=== PATIENT | female | born 1980 | race Caucasian/White ===

== ENCOUNTER 2022-10-13 16:18 | Emergency (ER) | payer OTHER, SELFPAY ==
--- NOTE | ~2022-10-13 | US_ITS ---
EXAMINATION: US PELVIS COMPLETE US PELVIS ENDOVAGINAL WITH LIMITED DOPPLER CLINICAL INFORMATION: Right lower quadrant pain COMPARISON: CT 10/13/2022 TECHNIQUE: Transabdominal and transvaginal images of the pelvis were obtained. Endovaginal imaging was performed for improved visualization of the ovaries and endometrial stripe. Color and spectral Doppler evaluation of the ovaries was attempted. FINDINGS: UTERUS: Anteverted, anteflexed. Normal size and contour, measuring 10.1 x 4.8 x 6.3 cm (cervix to fundus x AP x transverse). Uniform, homogeneous endometrium measures 1.3 cm in width. Incidentally noted nabothian cysts in the cervix. RIGHT OVARY: Right ovary not definitely seen. No adnexal mass. Normal color flow in the region of the right adnexa but as the right ovary could not be seen, definitive spectral Doppler evaluation could not be performed. LEFT OVARY: Left ovary not definitely seen. No adnexal mass. Normal color flow in the region of the left adnexa but as the left ovary could not be seen, definitive spectral Doppler evaluation could not be performed. FREE FLUID: Small volume of likely physiologic pelvic free fluid. US/US pelvic and transvaginal IMPRESSION: Normal appearance of the uterus. Ovaries not well seen but there is no adnexal mass.
--- NOTE | ~2022-10-13 | US_ITS ---
EXAMINATION: US PELVIS COMPLETE US PELVIS ENDOVAGINAL WITH LIMITED DOPPLER CLINICAL INFORMATION: Right lower quadrant pain COMPARISON: CT 10/13/2022 TECHNIQUE: Transabdominal and transvaginal images of the pelvis were obtained. Endovaginal imaging was performed for improved visualization of the ovaries and endometrial stripe. Color and spectral Doppler evaluation of the ovaries was attempted. FINDINGS: UTERUS: Anteverted, anteflexed. Normal size and contour, measuring 10.1 x 4.8 x 6.3 cm (cervix to fundus x AP x transverse). Uniform, homogeneous endometrium measures 1.3 cm in width. Incidentally noted nabothian cysts in the cervix. RIGHT OVARY: Right ovary not definitely seen. No adnexal mass. Normal color flow in the region of the right adnexa but as the right ovary could not be seen, definitive spectral Doppler evaluation could not be performed. LEFT OVARY: Left ovary not definitely seen. No adnexal mass. Normal color flow in the region of the left adnexa but as the left ovary could not be seen, definitive spectral Doppler evaluation could not be performed. FREE FLUID: Small volume of likely physiologic pelvic free fluid. US/US pelvic ovarian doppler IMPRESSION: Normal appearance of the uterus. Ovaries not well seen but there is no adnexal mass.
--- NOTE | ~2022-10-13 | CT_ITS ---
EXAMINATION: CT ABDOMEN AND PELVIS WITH CONTRAST CLINICAL INFORMATION: Right upper and right lower quadrant pain COMPARISON: None TECHNIQUE: Multidetector volumetric images were obtained from the superior aspect of the liver through the pubic symphysis following administration 90 mL of Omnipaque 350 intravenous contrast. Sagittal and coronal reformatted images were obtained on the technologist's workstation. Oral contrast: No This CT examination was performed using dose optimization techniques as appropriate, variously including the following: *Automated exposure control *Adjustment of mA and/or kV according to patient size (this includes techniques or standardized protocols for targeted exams where dose is matched to indication/reason for exam; i.e. extremities or head) *Use of iterative reconstruction technique DLP: 1581 mGy-cm FINDINGS: LUNG BASES: The visualized lung bases are unremarkable. LIVER, GALLBLADDER, AND BILIARY TREE: Diffuse hepatic hypoattenuation consistent with steatosis. No liver lesion or biliary ductal dilation. Status post cholecystectomy. PANCREAS: Unremarkable. SPLEEN: Unremarkable. ADRENAL GLANDS: Unremarkable. KIDNEYS AND URETERS: Symmetric nephrograms. No renal calculi or hydronephrosis. Small 0.7 cm exophytic low-density benign-appearing cyst in the anterior right midpole. No imaging follow-up recommended. No other renal lesions. No perinephric stranding or fluid collection. BLADDER: Decompressed limiting assessment, but grossly unremarkable. GASTROINTESTINAL TRACT: No dilated bowel loops. No bowel wall thickening. Normal appendix. No free air or ascites. ABDOMINAL WALL: Small fat-containing umbilical hernia. LYMPH NODES: No lymphadenopathy. VASCULAR: Unremarkable. PELVIC VISCERA: Gynecologic structures are unremarkable. Small amount of free pelvic fluid. OSSEOUS STRUCTURES: No acute fracture or suspicious osseous lesion. Mild multilevel spondylosis of the lower thoracic and lumbar spine. CT/CT abdomen pelvis w IV con IMPRESSION: 1. No evidence of acute appendicitis or other acute intra-abdominal process. 2. Hepatic steatosis. 3. Status post cholecystectomy.
[2022-10-13 16:29] VITALS: BP 158/76; PULSE 96; RESP 16; TEMP 36.2; O2SAT 99; BMI 43.9
--- NOTE | 2022-10-13 16:33 | ED_ITS ---
HPI - General Adult General Chief complaint: Abdominal Pain <DOC Esquivel Last Filed: 10/14/22 11:19> Stated complaint: sent from urgent care/ abdominal pain <DOC Esquivel Last Filed: 10/14/22 11:19> Time Seen by Provider: 10/13/22 17:50 <DOC Esquivel Last Filed: 10/14/22 11:19> Source: patient <DOC Galloway Last Filed: 10/14/22 01:08> Mode of arrival: ambulatory <DOC Galloway Last Filed: 10/14/22 01:08> Limitations: no limitations <DOC Galloway Last Filed: 10/14/22 01:08> History of Present Illness HPI narrative: This is a 42-year-old female no significant medical history presenting to the emergency department with sudden onset, right lower quadrant and right upper quadrant abdominal pain since this morning. Patient reports that the pain is intermittent, severe in nature, at time feels it in her flank patient tells me that she went to urgent care where she was advised to come in for further evalu ation and treatment. Also reports intermittent nausea and vomiting as well as fatigue, malaise and anorexia. Patient still has her appendix however doesnt have a gallbladder. Patient tells me she was feeling fine yesterday. Denies fevers, chills, chest pain, headache, vision changes, dizziness, weakness. <DOC Galloway Last Filed: 10/14/22 01:08> Related Data Home medications: Previous Rx's Medication Instructions Recorded aluminum-mag hydroxide-simethicone 5 ml PO 5XD PRN dyspepsia #355 mL 10/14/22 200 mg-200 mg-20 mg/5 mL oral susp (Maalox Advanced) ondansetron 4 mg disintegrating 4 mg PO Q6H PRN nausea and 10/14/22 tablet vomiting #14 tabs <DOC Esquivel Last Filed: 10/14/22 11:19> Allergies/adverse reactions: Allergies Allergy/AdvReac Type Severity Reaction Status Date / Time No Known Allergies Allergy Verified 10/13/22 16:29 <DOC Esquivel Last Filed: 10/14/22 11:19> Review of Systems Review of Systems: Constitutional : No Weight loss, No Fever, No Chills, No Fatigue, No Malaise ENT/Mouth : No sore throat, No Rhinorrhea Eyes: No Eye Pain, No Swelling, No Redness Cardiovascular : No Chest Pain, No SOB, No Dyspnea on Exertion, No Orthopnea, No Edema, No Palpitations Respiratory : No Cough, No Sputum, No Wheezing Gastrointestinal : + Nausea, + Vomiting, No Diarrhea, No Constipation, + abdomin al Pain, No Hematochezia, No Melena Genitourinary : No Dysuria, No Urinary Frequency, No Hematuria, Musculoskeletal : No joint pain, No Myalgias, No Joint Swelling Skin : No Skin Lesions, No rash Neuro : No Weakness, No Numbness, No Dizziness, No Headache Psych : No Anxiety/Panic, No Depression All other systems reviewed and are negative <DOC Galloway - Last F iled: 10/14/22 01:08> Yes all other systems are reviewed and are negative <DOC Galloway - Last Filed: 10/14/22 01:08> [facility] Past Medical History Attestation statement: The following information was validated with the patient. <DOC Key - Last Filed: 10/14/22 01:08> Source: old records reviewed and nursing notes reviewed <DOC Galloway - Last Filed: 10/14/22 01:08> Social History Social History: Social History Smoked in Last 30 Days: No Advance Directives: No Advance Directives Information Provided: Yes Patient : No <DOC Esquivel - Last Filed: 10/14/22 11:19> Physical Exam ED Vital Signs: Vital Signs - 24 hr 10/13/22 16:29 10/13/22 19:45 10/13/22 19:48 Temperature 97.1 F 98.4 F Pulse Rate 96 91 Respiratory Rate 16 18 18 Blood Pressure 158/76 H 108/68 Pulse Oximetry 99 97 Oxygen Delivery Method Room Air Room Air 10/13/22 21:58 10/13/22 22:24 10/14/22 01:52 Temperature 98.4 F Pulse Rate 63 67 82 Respiratory Rate 16 16 19 Blood Pressure 106/63 102/54 L 112/68 Pulse Oximetry 96 96 97 Oxygen Delivery Method Room Air Room Air Room Air BMI result Body Mass Index 43.9 <DOC Esquivel - Last Filed: 10/14/22 11:19> Vital Signs - 24 hr 10/13/22 16:29 10/13/22 19:45 10/13/22 19:48 Temperature 97.1 F 98.4 F Pulse Rate 96 91 Respiratory Rate 16 18 18 Blood Pressure 158/76 H 108/68 Pulse Oximetry 99 97 Oxygen Delivery Method Room Air Room Air 10/13/22 21:58 10/13/22 22:24 10/14/22 01:52 Temperature 98.4 F Pulse Rate 63 67 82 Respiratory Rate 16 16 19 Blood Pressure 106/63 102/54 L 112/68 Pulse Oximetry 96 96 97 Oxygen Delivery Method Room Air Room Air Room Air BMI result Body Mass Index 43.9 vss <DOC Galloway - Last Filed: 10/14/22 01:08> Appearance: Alert.? Oriented X3.? No acute distress.? Head: Normocephalic, atraumatic, no step-offs or deformities Eyes: Pupils equal, round and reactive to light.? ENT: Pharynx normal.? Neck: Normal inspection.? Neck supple.? CVS: Normal heart rate and rhythm.? Pulses normal.? Respiratory: No respiratory distress.? Breath sounds normal.? Abdomen: Soft and tenderness to right lower quadrant and RUQ pain on palpation RUQ >RLQ Normoactive bowel sounds..? Skin: Skin warm and dry.? Normal skin color.? Normal skin turgor.? Extremities: No lower extremity edema.? No calf ttp. 5/5 strength to bilateral upper and lower extremities Back: No midline tenderness, no C-spine tenderness, full range of motion, no CVA tenderness bilaterally Neuro: Oriented X 3.? No motor deficit.? No sensory deficit. CN 2-12 intact <DOC Galloway - Last Filed: 10/14/22 01:08> Course Course Course Narrative: RME: 42 yold female presents to the ED for RUQ and RLQ pain for the past two days with vomitting. Labs and UA ordered. <DOC Esquivel - Last Filed: 10/14/22 11:19> Reevaluation(s) Reevaluation #1: CBC within normal limits. Chemistry with no acute findings requiring intervention. Lipase within normal limits. Beta hCG negative. Coags normal. Patient's UA without infection. Urine negative. COVID, influenza negative. CT of the abdomen and pelvis with no evidence of acute appendicitis or other acute intra-abdominal processes. Hepatic steatosis noted. Status post cholecystectomy. Pelvic and transvaginal ultrasound normal appearance of the uterus, eat ovaries not well seen but there is no adnexal mass, unable to visualize flow however patient's pain is mostly to the upper abdomen, I do not suspect ovarian torsion. Patient continued to complain of pain therefore an additional dose of morphine was given. Patient reports symptomatic improvement. Will give her GI cocktail and do a p.o. challenge. <DOC Galloway - Last Filed: 10/14/22 01:08> Time: 00:40 <DOC Galloway - Last Filed: 10/14/22 01:08> Reevaluation #2: Patient feeling better. [facility] Educated patient on diagnosis and treatment plan, answered all question, patient verbalizes understanding. At this time patient will be discharged home, advised to return with new or worsening symptoms. Educated on worrisome signs and symptoms and when to return. At this time I feel comfortable discharge home. Will have her follow up with GI <DOC Galloway - Last Filed: 10/14/22 01:08> Time: 01:07 <DOC Galloway - Last Filed: 10/14/22 01:08> Medications Administered Discontinued Medications Generic Name Dose Route Start Last Admin Trade Name Freq PRN Reason Stop Dose Admin Al Hydroxide/Mg Hydroxide 30 ml 10/14/22 00:40 10/14/22 01:11 Magnesium Hydrox/Alum Hydrox 30 Ml Oral.Susp PO 10/14/22 00:41 30 ml ONCE ONE Administration Belladonna Alkaloids/Phenobarbital 10 ml 10/14/22 00:40 10/14/22 01:12 Phenobarb/Hyoscy/Atropine/Scop 10 Ml Elixir PO 10/14/22 00:41 10 ml ONCE ONE Administration Iohexol 100 ml 10/13/22 18:44 10/13/22 18:44 Iohexol 350 Mg/Ml 100 Ml Infus..Btl IV 10/13/22 18:45 90 ml ONCE ONE Administration Morphine Sulfate 4 mg 10/13/22 19:16 10/13/22 19:48 Morphine Sulfate 4 Mg/Ml Cartridge IVPUSH 10/13/22 19:17 4 mg ONCE ONE Administration Protocol Morphine Sulfate 4 mg 10/13/22 21:48 10/13/22 21:51 Morphine Sulfate 4 Mg/Ml Cartridge IVPUSH 10/13/22 21:49 4 mg ONCE ONE Administration Protocol Ondansetron HCl 4 mg 10/13/22 19:29 10/13/22 19:48 Ondansetron Hcl 4 Mg/2 Ml Vial IVPUSH 10/13/22 19:30 4 mg ONCE ONE Administration <DOC Esquivel - Last Filed: 10/14/22 11:19> Medications Administered Discontinued Medications Generic Name Dose Route Start Last Admin Trade Name Freq PRN Reason Stop Dose Admin Al Hydroxide/Mg Hydroxide 30 ml 10/14/22 00:40 10/14/22 01:11 Magnesium Hydrox/Alum Hydrox 30 Ml Oral.Susp PO 10/14/22 00:41 30 ml ONCE ONE Administration Belladonna Alkaloids/Phenobarbital 10 ml 10/14/22 00:40 10/14/22 01:12 Phenobarb/Hyoscy/Atropine/Scop 10 Ml Elixir PO 10/14/22 00:41 10 ml ONCE ONE Administration Iohexol 100 ml 10/13/22 18:44 10/13/22 18:44 Iohexol 350 Mg/Ml 100 Ml Infus..Btl IV 10/13/22 18:45 90 ml ONCE ONE Administration Morphine Sulfate 4 mg 10/13/22 19:16 10/13/22 19:48 Morphine Sulfate 4 Mg/Ml Cartridge IVPUSH 10/13/22 19:17 4 mg ONCE ONE Administration Protocol Morphine Sulfate 4 mg 10/13/22 21:48 10/13/22 21:51 Morphine Sulfate 4 Mg/Ml Cartridge IVPUSH 10/13/22 21:49 4 mg ONCE ONE Administration Protocol Ondansetron HCl 4 mg 10/13/22 19:29 10/13/22 19:48 Ondansetron Hcl 4 Mg/2 Ml Vial IVPUSH 10/13/22 19:30 4 mg ONCE ONE Administration <DOC Galloway - Last Filed: 10/14/22 01:08> Medical Decision Making Medical Decision Making [facility] Narrative: 1752 42-year-old female presents with sudden-onset right lower quadrant pain/ right upper quadrant pain, severe intermittent nature associated with nausea, vomiting. Coming from urgent care. Physical exam with tenderness to right lower quadrant and RUQ pain on palpation RUQ >RLQ Concerns for possible appendicitis versus kidney stone versus UTI and cystitis. Unlikely acute abdomen, cholecystitis, pancreatitis, diverticulitis. Plan labs, imaging, urine, , influenza and COVID. <DOC Galloway - Last Filed: 10/14/22 01:08> Differential Diagnosis Differential Diagnoses: The differential diagnosis associated with the presentation includes <DOC Galloway - Last Filed: 10/14/22 01:08> Concerns for possible appendicitis versus kidney stone versus UTI and cystitis. Unlikely acute abdomen, cholecystitis, pancreatitis, diverticulitis. <DOC Galloway - Last Filed: 10/14/22 01:08> Lab Data [facility] Lab Attestation statement: I reviewed the patient's lab results. <DOC Galloway - Last Filed: 10/14/22 01:08> Result Diagrams: 10/13/22 16:47 10/13/22 16:47 <DOC Esquivel - Last Filed: 10/14/22 11:19> Labs: Lab Results 10/13/22 10/13/22 10/13/22 Range/Units 16:47 16:47 16:47 WBC 10.0 (4.8-10.8) X10*3/uL RBC 4.76 (4.20-5.50) X10*6/uL Hgb 13.2 (12.0-16.0) g/dl Hct 40.4 (37.0-47.0) % MCV 84.9 (80.0-98.0) fL MCH 27.7 (27.0-33.0) pg MCHC 32.7 (31.0-35.0) g/dl RDW 13.3 (11.0-16.0) % Plt Count 313 (160-400) X10*3/uL MPV 9.4 (9.4-12.3) fL Immature Gran % (Auto) 0.4 (0.0-0.4) % Neut % (Auto) 88.5 H (45-73) % Lymph % (Auto) 6.3 L (20-40) % Mineral % (Auto) 4.4 (2-11) % Eos % (Auto) 0.2 (0-4) % Baso % (Auto) 0.2 (0-2) % Lymph # (Auto) 0.6 L (1.2-4.9) X10*3/uL Mineral # (Auto) 0.4 (0.1-1.2) X10*3/uL Eos # (Auto) 0.0 (0.0-0.4) X10*3/uL Baso # (Auto) 0.0 (0.0-0.2) X10*3/uL Abs Immat Gran (auto) 0.04 H (0.00-0.03) X10*3/uL Absolute Neuts (auto) 8.9 H (2.0-8.3) x10*3/uL Absolute Nucleated RBC 0.000 (0.0-0.012) X10*3/uL Nucleated RBC % (auto) 0.0 (0.0-0.2) /100WBC PT 12.3 (10.0-13.1) SEC INR 1.1 (0.9-1.1) APTT 30.0 (26.0-36.4) SEC Sodium 138 (135-145) mmol/L Potassium 3.7 (3.3-5.1) mmol/L Chloride 107 (96-108) mmol/L Carbon Dioxide 20 L (22-29) mmol/L Anion Gap 15 (12-20) BUN 15 (9-16) mg/dL Creatinine 0.66 (0.5-1.4) mg/dL Estim Creat Clear Calc 162.4 Estimated GFR > 60 Random Glucose 102 (60-115) mg/dL Calcium 8.9 (8.4-10.2) mg/dL Total Bilirubin 0.8 (0.0-1.0) mg/dL AST 20 (5-31) U/L ALT 16 (0-31) U/L Alkaline Phosphatase 70 (39-117) U/L Total Protein 7.3 (6.5-8.0) g/dL Albumin 4.0 (3.5-5.0) g/dL Lipase 14 (8-78) U/L Beta HCG, Quant < 2 mIU/mL Urine Color Urine Appearance Urine pH (5.0-9.0) Ur Specific [place] (1.005-1.025) Urine Protein (Neg-Trace) mg/dL Urine Glucose (UA) (Negative) mg/dL Urine Ketones (Negative) mg/dL Urine Blood (Negative) Urine Nitrite (Negative) Ur Leukocyte Esterase (Negative) Urine Test (NEGATIVE) COVID-19 ([facility]IA [facility]) (Negative) COVID-19 Clin Com Influenza Type A ([place]) (Negative) Influenza Type B ([place]) (Negative) Influenza A & B Note 10/13/22 10/13/22 10/13/22 Range/Units 18:06 18:06 18:06 WBC (4.8-10.8) X10*3/uL RBC (4.20-5.50) X10*6/uL Hgb (12.0-16.0) g/dl Hct (37.0-47.0) % MCV (80.0-98.0) fL MCH (27.0-33.0) pg MCHC (31.0-35.0) g/dl RDW (11.0-16.0) % Plt Count (160-400) X10*3/uL MPV (9.4-12.3) fL Immature Gran % (Auto) (0.0-0.4) % Neut % (Auto) (45-73) % Lymph % (Auto) (20-40) % Mineral % (Auto) (2-11) % Eos % (Auto) (0-4) % Baso % (Auto) (0-2) % Lymph # (Auto) (1.2-4.9) X10*3/uL Mineral # (Auto) (0.1-1.2) X10*3/uL Eos # (Auto) (0.0-0.4) X10*3/uL Baso # (Auto) (0.0-0.2) X10*3/uL Abs Immat Gran (auto) (0.00-0.03) X10*3/uL Absolute Neuts (auto) (2.0-8.3) x10*3/uL Absolute Nucleated RBC (0.0-0.012) X10*3/uL Nucleated RBC % (auto) (0.0-0.2) /100WBC PT (10.0-13.1) SEC INR (0.9-1.1) APTT (26.0-36.4) SEC Sodium (135-145) mmol/L Potassium (3.3-5.1) mmol/L Chloride (96-108) mmol/L Carbon Dioxide (22-29) mmol/L Anion Gap (12-20) BUN (9-16) mg/dL Creatinine (0.5-1.4) mg/dL Estim Creat Clear Calc Estimated GFR Random Glucose (60-115) mg/dL Calcium (8.4-10.2) mg/dL Total Bilirubin (0.0-1.0) mg/dL AST (5-31) U/L ALT (0-31) U/L Alkaline Phosphatase (39-117) U/L Total Protein (6.5-8.0) g/dL Albumin (3.5-5.0) g/dL Lipase (8-78) U/L Beta HCG, Quant mIU/mL Urine Color Yellow Urine Appearance Clear Urine pH 5.5 (5.0-9.0) Ur Specific [place] 1.025 (1.005-1.025) Urine Protein Trace (Neg-Trace) mg/dL Urine Glucose (UA) Negative (Negative) mg/dL Urine Ketones 40 (Negative) mg/dL Urine Blood Negative (Negative) Urine Nitrite Negative (Negative) Ur Leukocyte Esterase Negative (Negative) Urine Test (NEGATIVE) COVID-19 ([place]) Negative (Negative) COVID-19 Clin Com See Note Influenza Type A ([place]) Negative (Negative) Influenza Type B ([place]) Negative (Negative) Influenza A & B Note See Note 10/13/22 Range/Units 18:06 WBC (4.8-10.8) X10*3/uL RBC (4.20-5.50) X10*6/uL Hgb (12.0-16.0) g/dl Hct (37.0-47.0) % MCV (80.0-98.0) fL MCH (27.0-33.0) pg MCHC (31.0-35.0) g/dl RDW (11.0-16.0) % Plt Count (160-400) X10*3/uL MPV (9.4-12.3) fL Immature Gran % (Auto) (0.0-0.4) % Neut % (Auto) (45-73) % Lymph % (Auto) (20-40) % [place] % (Auto) (2-11) % Eos % (Auto) (0-4) % Baso % (Auto) (0-2) % Lymph # (Auto) (1.2-4.9) X10*3/uL Min[place] # (Auto) (0.1-1.2) X10*3/uL Eos # (Auto) (0.0-0.4) X10*3/uL Baso # (Auto) (0.0-0.2) X10*3/uL Abs Immat Gran (auto) (0.00-0.03) X10*3/uL Absolute Neuts (auto) (2.0-8.3) x10*3/uL Absolute Nucleated RBC (0.0-0.012) X10*3/uL Nucleated RBC % (auto) (0.0-0.2) /100WBC PT (10.0-13.1) SEC INR (0.9-1.1) APTT (26.0-36.4) SEC Sodium (135-145) mmol/L Potassium (3.3-5.1) mmol/L Chloride (96-108) mmol/L Carbon Dioxide (22-29) mmol/L Anion Gap (12-20) BUN (9-16) mg/dL Creatinine (0.5-1.4) mg/dL Estim Creat Clear Calc Estimated GFR Random Glucose (60-115) mg/dL Calcium (8.4-10.2) mg/dL Total Bilirubin (0.0-1.0) mg/dL AST (5-31) U/L ALT (0-31) U/L Alkaline Phosphatase (39-117) U/L Total Protein (6.5-8.0) g/dL Albumin (3.5-5.0) g/dL Lipase (8-78) U/L Beta HCG, Quant mIU/mL Urine Color Urine Appearance Urine pH (5.0-9.0) Ur Specific [place] (1.005-1.025) Urine Protein (Neg-Trace) mg/dL Urine Glucose (UA) (Negative) mg/dL Urine Ketones (Negative) mg/dL Urine Blood (Negative) Urine Nitrite (Negative) Ur Leukocyte Esterase (Negative) Urine Test NEGATIVE (NEGATIVE) COVID-19 ([place] [place]) (Negative) COVID-19 Clin Com Influenza Type A ([place]) (Negative) Influenza Type B ([place]) (Negative) Influenza A & B Note <DOC Esquivel - Last Filed: 10/14/22 11:19> Lab Results 10/13/22 10/13/22 10/13/22 Range/Units 16:47 16:47 16:47 WBC 10.0 (4.8-10.8) X10*3/uL RBC 4.76 (4.20-5.50) X10*6/uL Hgb 13.2 (12.0-16.0) g/dl Hct 40.4 (37.0-47.0) % MCV 84.9 (80.0-98.0) fL MCH 27.7 (27.0-33.0) pg MCHC 32.7 (31.0-35.0) g/dl RDW 13.3 (11.0-16.0) % Plt Count 313 (160-400) X10*3/uL MPV 9.4 (9.4-12.3) fL Immature Gran % (Auto) 0.4 (0.0-0.4) % Neut % (Auto) 88.5 H (45-73) % Lymph % (Auto) 6.3 L (20-40) % Mineral % (Auto) 4.4 (2-11) % Eos % (Auto) 0.2 (0-4) % Baso % (Auto) 0.2 (0-2) % Lymph # (Auto) 0.6 L (1.2-4.9) X10*3/uL Mineral # (Auto) 0.4 (0.1-1.2) X10*3/uL Eos # (Auto) 0.0 (0.0-0.4) X10*3/uL Baso # (Auto) 0.0 (0.0-0.2) X10*3/uL Abs Immat Gran (auto) 0.04 H (0.00-0.03) X10*3/uL Absolute Neuts (auto) 8.9 H (2.0-8.3) x10*3/uL Absolute Nucleated RBC 0.000 (0.0-0.012) X10*3/uL Nucleated RBC % (auto) 0.0 (0.0-0.2) /100WBC PT 12.3 (10.0-13.1) SEC INR 1.1 (0.9-1.1) APTT 30.0 (26.0-36.4) SEC Sodium 138 (135-145) mmol/L Potassium 3.7 (3.3-5.1) mmol/L Chloride 107 (96-108) mmol/L Carbon Dioxide 20 L (22-29) mmol/L Anion Gap 15 (12-20) BUN 15 (9-16) mg/dL Creatinine 0.66 (0.5-1.4) mg/dL Estim Creat Clear Calc 162.4 Estimated GFR > 60 Random Glucose 102 (60-115) mg/dL Calcium 8.9 (8.4-10.2) mg/dL Total Bilirubin 0.8 (0.0-1.0) mg/dL AST 20 (5-31) U/L ALT 16 (0-31) U/L Alkaline Phosphatase 70 (39-117) U/L Total Protein 7.3 (6.5-8.0) g/dL Albumin 4.0 (3.5-5.0) g/dL Lipase 14 (8-78) U/L Beta HCG, Quant < 2 mIU/mL Urine Color Urine Appearance Urine pH (5.0-9.0) Ur Specific [place] (1.005-1.025) Urine Protein (Neg-Trace) mg/dL Urine Glucose (UA) (Negative) mg/dL Urine Ketones (Negative) mg/dL Urine Blood (Negative) Urine Nitrite (Negative) Ur Leukocyte Esterase (Negative) Urine Test (NEGATIVE) COVID-19 ([place]) (Negative) COVID-19 Clin Com Influenza Type A ([place]) (Negative) Influenza Type B ([place]) (Negative) Influenza A & B Note 10/13/22 10/13/22 10/13/22 Range/Units 18:06 18:06 18:06 WBC (4.8-10.8) X10*3/uL RBC (4.20-5.50) X10*6/uL Hgb (12.0-16.0) g/dl Hct (37.0-47.0) % MCV (80.0-98.0) fL MCH (27.0-33.0) pg MCHC (31.0-35.0) g/dl RDW (11.0-16.0) % Plt Count (160-400) X10*3/uL MPV (9.4-12.3) fL Immature Gran % (Auto) (0.0-0.4) % Neut % (Auto) (45-73) % Lymph % (Auto) (20-40) % [place] % (Auto) (2-11) % Eos % (Auto) (0-4) % Baso % (Auto) (0-2) % Lymph # (Auto) (1.2-4.9) X10*3/uL Mineral # (Auto) (0.1-1.2) X10*3/uL Eos # (Auto) (0.0-0.4) X10*3/uL Baso # (Auto) (0.0-0.2) X10*3/uL Abs Immat Gran (auto) (0.00-0.03) X10*3/uL Absolute Neuts (auto) (2.0-8.3) x10*3/uL Absolute Nucleated RBC (0.0-0.012) X10*3/uL Nucleated RBC % (auto) (0.0-0.2) /100WBC PT (10.0-13.1) SEC INR (0.9-1.1) APTT (26.0-36.4) SEC Sodium (135-145) mmol/L Potassium (3.3-5.1) mmol/L Chloride (96-108) mmol/L Carbon Dioxide (22-29) mmol/L Anion Gap (12-20) BUN (9-16) mg/dL Creatinine (0.5-1.4) mg/dL Estim Creat Clear Calc Estimated GFR Random Glucose (60-115) mg/dL Calcium (8.4-10.2) mg/dL Total Bilirubin (0.0-1.0) mg/dL AST (5-31) U/L ALT (0-31) U/L Alkaline Phosphatase (39-117) U/L Total Protein (6.5-8.0) g/dL Albumin (3.5-5.0) g/dL Lipase (8-78) U/L Beta HCG, Quant mIU/mL Urine Color Yellow Urine Appearance Clear Urine pH 5.5 (5.0-9.0) Ur Specific [place] 1.025 (1.005-1.025) Urine Protein Trace (Neg-Trace) mg/dL Urine Glucose (UA) Negative (Negative) mg/dL Urine Ketones 40 (Negative) mg/dL Urine Blood Negative (Negative) Urine Nitrite Negative (Negative) Ur Leukocyte Esterase Negative (Negative) Urine Test (NEGATIVE) COVID-19 ([facility]) Negative (Negative) COVID-19 Clin Com See Note Influenza Type A ([place]) Negative (Negative) Influenza Type B ([place]) Negative (Negative) Influenza A & B Note See Note 10/13/22 Range/Units 18:06 WBC (4.8-10.8) X10*3/uL RBC (4.20-5.50) X10*6/uL Hgb (12.0-16.0) g/dl Hct (37.0-47.0) % MCV (80.0-98.0) fL MCH (27.0-33.0) pg MCHC (31.0-35.0) g/dl RDW (11.0-16.0) % Plt Count (160-400) X10*3/uL MPV (9.4-12.3) fL Immature Gran % (Auto) (0.0-0.4) % Neut % (Auto) (45-73) % Lymph % (Auto) (20-40) % [place] % (Auto) (2-11) % Eos % (Auto) (0-4) % Baso % (Auto) (0-2) % Lymph # (Auto) (1.2-4.9) X10*3/uL [place] # (Auto) (0.1-1.2) X10*3/uL Eos # (Auto) (0.0-0.4) X10*3/uL Baso # (Auto) (0.0-0.2) X10*3/uL Abs Immat Gran (auto) (0.00-0.03) X10*3/uL Absolute Neuts (auto) (2.0-8.3) x10*3/uL Absolute Nucleated RBC (0.0-0.012) X10*3/uL Nucleated RBC % (auto) (0.0-0.2) /100WBC PT (10.0-13.1) SEC INR (0.9-1.1) APTT (26.0-36.4) SEC Sodium (135-145) mmol/L Potassium (3.3-5.1) mmol/L Chloride (96-108) mmol/L Carbon Dioxide (22-29) mmol/L Anion Gap (12-20) BUN (9-16) mg/dL Creatinine (0.5-1.4) mg/dL Estim Creat Clear Calc Estimated GFR Random Glucose (60-115) mg/dL Calcium (8.4-10.2) mg/dL Total Bilirubin (0.0-1.0) mg/dL AST (5-31) U/L ALT (0-31) U/L Alkaline Phosphatase (39-117) U/L Total Protein (6.5-8.0) g/dL Albumin (3.5-5.0) g/dL Lipase (8-78) U/L Beta HCG, Quant mIU/mL Urine Color Urine Appearance Urine pH (5.0-9.0) Ur Specific [place] (1.005-1.025) Urine Protein (Neg-Trace) mg/dL Urine Glucose (UA) (Negative) mg/dL Urine Ketones (Negative) mg/dL Urine Blood (Negative) Urine Nitrite (Negative) Ur Leukocyte Esterase (Negative) Urine Test NEGATIVE (NEGATIVE) COVID-19 ([facility]) (Negative) COVID-19 Clin Com Influenza Type A ([place]) (Negative) Influenza Type B ([place]) (Negative) Influenza A & B Note <DOC Galloway - Last Filed: 10/14/22 01:08> Independent Interpretation I performed an independent interpretation of an: Ultrasound and CT Scan <DOC Galloway - Last Filed: 10/14/22 01:08> Radiology Impression Discussion of test interpretation with radiology: I have reviewed the radiologist's reading. <DOC Galloway - Last Filed: 10/14/22 01:08> Core Measures AMI core measures followed: Yes <DOC Galloway - Last Filed: 10/14/22 01:08> Measure exclusions: not indicated <DOC Galloway - Last Filed: 10/14/22 01:08> Critical Care Time Critical Care Time Critical Care Time: No <DOC Galloway Last Filed: 10/14/22 01:08> Discharge Plan Discharge Clinical Impression: Abdominal pain, Nausea & vomiting <DOC Esquivel Last Filed: 10/14/22 11:19> Patient Disposition: Home, Self-Care <DOC Esquivel Last Filed: 10/14/22 11:19> Instructions: Acute Nausea and Vomiting (ED), Abdominal Pain (ED) <DOC Esquivel Last Filed: 10/14/22 11:19> Additional Instructions: Take your medications as prescribed. If you were prescribed antibiotics today, it is important that you take your medication to their entirety, do not skip any doses, do not finish them early. Follow-up with your primary care provider this week. Follow-up with [facility]ology if symptoms persist Return to the emergency department with new or worsening symptoms. Such as fevers, chills, chest pain, shortness of breath, nausea, vomiting, dizziness, headache, vision changes, lethargy, worsening pain or changes in quality of pain In case of emergency call 911 US/US pelvic and transvaginal IMPRESSION: Normal appearance of the uterus. Ovaries not well seen but there is no adnexal mass. ? CT/CT abdomen pelvis w IV con IMPRESSION: 1.? No evidence of acute appendicitis or other acute intra-abdominal process. 2.? Hepatic steatosis. 3.? Status post cholecystectomy. <DOC Esquivel Last Filed: 10/14/22 11:19> Prescriptions: New alum-mag hydroxide-simeth [Maalox Advanced] 200-200-20 mg/5 mL suspension 5 ml PO 5XD PRN (Reason: dyspepsia) Qty: 355 0RF Rx Instructions: administer between meals and at bedtime ondansetron 4 mg tablet,disintegrating 4 mg PO Q6H PRN (Reason: nausea and vomiting) Qty: 14 0RF <DOC Esquivel - Last Filed: 10/14/22 11:19> Referrals: [facility] [Provider Group] - 2 days Physician,Unknown J [Primary Care Provider] - 2 days <DOC Esquivel - Last Filed: 10/14/22 11:19> Stand Alone Forms: Work/School Release <DOC Esquivel - Last Filed: 10/14/22 11:19> Interventions: ED Discharge Assessment Last Done: 10/14/22 02:24 <DOC Esquivel - Last Filed: 10/14/22 11:19> Discharge Date/Time: 10/14/22 02:25 <DOC Esquivel - Last Filed: 10/14/22 11:19>
[2022-10-13 16:51] LABS: MANUAL DIFF FLAG NO
[2022-10-13 16:52] LABS: Basophils Percent Auto 0.2 % (0-2); Eosinophils Percent Auto 0.2 % (0-4); Hematocrit 40.4 % (37.0-47.0); Hemoglobin 13.2 g/dl (12.0-16.0); Imm Gran Abs Auto 0.04 X10*3/uL (0.00-0.03); Imm Gran Pct Auto 0.4 % (0.0-0.4); Lymphocytes Absolute Auto 0.6 X10*3/uL (1.2-4.9); Lymphocytes Percent Auto 6.3 % (20-40); Mean Corpuscular HGB Conc 32.7 g/dl (31.0-35.0); Mean Corpuscular Hemoglobin 27.7 pg (27.0-33.0); Mean Corpuscular Volume 84.9 fL (80.0-98.0); Mean Platelet Volume 9.4 fL (9.4-12.3); Monocytes Absolute Auto 0.4 X10*3/uL (0.1-1.2); Monocytes Percent Auto 4.4 % (2-11); Neutrophils Absolute Auto 8.9 x10*3/uL (2.0-8.3); Neutrophils Percent Auto 88.5 % (45-73); Platelet Count 313 X10*3/uL (160-400); Red Blood Count 4.76 X10*6/uL (4.20-5.50); Red Cell Distribution Width 13.3 % (11.0-16.0)
[2022-10-13 16:59] LABS: INTERNATIONAL NORM RATIO 1.1 (0.9-1.1); Prothrombin Time 12.3 SEC (10.0-13.1)
[2022-10-13 17:33] LABS: Alanine Aminotransferase 16 U/L (0-31); Alkaline Phosphatase 70 U/L (39-117); Anion Gap 15 (12-20); Aspartate Amino Transferase 20 U/L (5-31); Bilirubin Total 0.8 mg/dL (0.0-1.0); Blood Urea Nitrogen 15 mg/dL (9-16); Calcium 8.9 mg/dL (8.4-10.2); Carbon Dioxide 20 mmol/L (22-29); Chloride 107 mmol/L (96-108); Creatinine Clr Calc Pharmacy 162.4; Estimated Glomerular Filt Rate > 60; Glucose Random 102 mg/dL (60-115); Lipase 14 U/L (8-78); Potassium 3.7 mmol/L (3.3-5.1); Sodium 138 mmol/L (135-145); Total Protein 7.3 g/dL (6.5-8.0)
[2022-10-13 17:40] LABS: HCG Quantitative < 2 mIU/mL
[2022-10-13 18:14] LABS: Appearance Urine Clear; Color Urine Yellow; Glucose Urine UA Negative (Negative); Leukocyte Esterase Urine Negative (Negative); Nitrite Urine Negative (Negative); PH 5.5 (5.0-9.0); Specific Gravity - Urine 1.025 (1.005-1.025); Urine Blood Negative (Negative); Urine Ketones 40 mg/dL (Negative); Urine Protein Trace mg/dL (Neg-Trace)
[2022-10-13 18:16] LABS: UPreg QC Valid YES; Urine Pregnancy NEGATIVE (NEGATIVE)
--- NOTE | 2022-10-13 18:29 | PC.NURSE ---
PT REPORTS RLQ PAIN THAT STARTED SUDDENLY THIS MORNING. SHE ALSO REPORTS MALAISE/FATIGUE/SOME N/V. NO DIARRHEA, DENIES DOMINGO/DIZZINESS. SHE REPORTS THAT SHE ATE [employer] LAST NIGHT AND IS NOT SURE IF THAT'S THE CAUSE. A+O, VSS.
[2022-10-13 18:30] LABS: COVID-19 Test Negative (Negative); IDNOW Serial# 16C4AD1C; IDNOW Serial# BCCEAD1C; Influenza A Negative (Negative); Influenza B2 Negative (Negative)
[2022-10-13] MEDS: iohexoL 350 MG/ML 100 ML INFUS..BTL IV (18:44)
[2022-10-13 19:45] VITALS: BP 108/68; PULSE 91; RESP 18; TEMP 36.9; O2SAT 97
[2022-10-13 19:48] VITALS: RESP 18
[2022-10-13] MEDS: ondansetron HCL 4 MG/2 ML VIAL IVPUSH (19:48)
[2022-10-13] MEDS: Morphine Sulfate 4 MG/ML CARTRIDGE IVPUSH ×2 (19:48→21:51)
[2022-10-13 21:58] VITALS: BP 106/63; PULSE 63; RESP 16; O2SAT 96
--- NOTE | 2022-10-13 22:22 | PC.NURSE ---
Pt. lying in bed, tearful. Pt. reports that since lying flat for US, she's had an increase in pain just under her ribs radiating upwards. Pt. reports not being used to lying flat on her back. Pt. medicated with morphine per MAR.
[2022-10-13 22:24] VITALS: BP 102/54; PULSE 67; RESP 16; O2SAT 96
--- NOTE | 2022-10-13 23:07 | PC.NURSE ---
Pt. sleeping, under no apparent distress. Respirations even and unlabored. Will continue to monitor.
[2022-10-14] MEDS: Magnesium Hydrox/Alum Hydrox 30 ML ORAL.SUSP PO (01:11)
[2022-10-14] MEDS: PHENobarb/Hyoscy/Atropine/Scop 10 ML ELIXIR PO (01:12)
--- NOTE | 2022-10-14 01:34 | PC.NURSE ---
Pt. lying in bed in room. Pt. reports decrease in pain down to 4/10 from previous 05/08. Pt. medicated with maalox and per MAR. Will monitor pt. and she may be dc'd when feeling better and passing PO challenge. Pt. was given crackers.
[2022-10-14 01:52] VITALS: BP 112/68; PULSE 82; RESP 19; TEMP 36.9; O2SAT 97
== END 2022-10-14 02:25 | disposition home or self-care (01) ==
PROVIDERS: Physician Assistant; Emergency Provider Internal Medicine
DX: R10.31 Right lower quadrant pain (principal); R10.11 Right upper quadrant pain; R10.2 Pelvic and perineal pain; R11.2 Nausea with vomiting, unspecified; Z79.899 Other long term (current) drug therapy; Z20.822 Contact with and (suspected) exposure to COVID-19; Z20.828 Contact with and (suspected) exposure to other viral communicable diseases
CPT/HCPCS: 36415; 74177; 76830; 76856; 80053; 81003; 81025; 83690; 84702; 85025; 85610; 85730; 87502; 87635; 93975; 96374; 96375; 96376; 99285; J2270; J2405; Q9967